=== PATIENT | female | born 1950 | race Caucasian/White ===

== ENCOUNTER 2019-07-15 16:20 | Emergency (ER) | payer MEDICARE, BC, SELFPAY ==
--- NOTE | 2019-07-15 16:28 | ED.GENADULT ---
HPI - General Adult General Chief complaint: Extremity Injury, Lower Stated complaint: lt foot toe pain Time Seen by Provider: 07/15/19 17:04 Source: patient Mode of arrival: ambulatory Limitations: no limitations History of Present Illness HPI narrative: 6-year-old female patient presents to the [facility] with complaints of left second toe pain. Patient states is been painful for about 3 days. Denies any injury to the toe that she can remember. Patient states it has been a little sore around the nail so she tried lifting up the edges of the nail put some Neosporin around there thinking it might be an ingrown toenail. Patient states now the distal portion of the toe is very red swollen and tender. Patient denies being a diabetic. Denies any fevers or chills that she is aware of. Related Data Home Medications Medication Instructions Recorded Confirmed cholecalciferol (vitamin D3) 4,000 unit PO DAILY 07/15/19 07/15/19 [Vitamin D3] estradiol 2 mg PO DAILY 07/15/19 07/15/19 losartan 07/15/19 Allergies Allergy/AdvReac Type Severity Reaction Status Date / Time iodine Allergy Severe SWELLING Unverified 07/15/19 16:37 Review of Systems Review of Systems: Narrative: CONSTITUTIONAL: Denies fever, chills, or sweats. EYES: Denies visual changes, redness, or discharge. ENT: Denies rhinorrhea, congestion, sore throat, or otalgia. CARDIOVASCULAR: Denies chest pain, palpitations, or edema. RESPIRATORY: Denies cough or dyspnea. GASTROINTESTINAL: Denies abdominal pain, nausea, vomiting, or diarrhea. GENITOURINARY: Denies dysuria or hematuria. SKIN: Denies rash or itching. MUSCULOSKELETAL: Denies back pain, joint pain, or myalgia. Positive left second toe pain x3-day NEUROLOGIC: Denies headache, numbness, or weakness. PSYCHIATRIC: Denies anxiety or depression. PMFSH Comments At the time of my signature I agree with nursing past medical history, surgical, social, and family history. There is no relevant family history pertinent to the presenting complaint. Exam Narrative: Exam Narrative: GENERAL: Well-appearing, well-nourished, and in no acute distress. HEAD: Normocephalic, atraumatic. EYES: PERRLA and EOMI. ENT: Nares clear, no rhinorrhea or epistaxis. Mucous membranes moist. NECK: Supple. No lymphadenopathy CHEST: Clear to auscultation. No respiratory distress. HEART: Regular rate and rhythm. No murmur heard. Normal peripheral pulses. ABDOMEN: Soft, nontender, nondistended, normal active bowel sounds. EXTREMITIES: Normal range of motion. No edema. Patient has some redness and tenderness with slight swelling noted to the distal portion of the left second toe. There is no obvious drainable abscess no notable drainage around the nail bed at this time. SKIN: Warm, dry, no rash. NEURO: No focal deficits. Alert and oriented x3. Course Vital Signs Vital signs: Vital Signs Temperature 36.8 C 07/15/19 16:41 Pulse Rate 71 07/15/19 16:41 Respiratory Rate 16 07/15/19 16:41 Blood Pressure 137/75 07/15/19 16:41 Pulse Oximetry 99 07/15/19 16:41 Temperature 36.8 C 07/15/19 16:41 Pulse Rate 71 07/15/19 16:41 Respiratory Rate 16 07/15/19 16:41 Blood Pressure 137/75 07/15/19 16:41 Pulse Oximetry 99 07/15/19 16:41 Vital signs reviewed. Medical Decision Making Differential Diagnosis Differential Diagnosis: Differential diagnosis: Foot fracture, crush injury, compartment syndrome, contusion, sprain, tendinitis,lisfranc sprain or fracture, avulsion fracture, grown toenail, diabetic ulcer. Discussed with patient that this could be an ingrown toenail that is starting to get infected causing some cellulitis to the area. Discussed with her we will go ahead and place her on some oral antibiotics and I want her to soak the foot and some Epson salt baths about 15 minutes 3 times a day to help dry out the infection and may continue putting the Neosporin around the nail bed. Patient verbalizes understanding
[2019-07-15 16:41] VITALS: BP 137/75; PULSE 71; RESP 16; TEMP 36.8; O2SAT 99
== END 2019-07-15 17:11 | disposition home or self-care (01) ==
PROVIDERS: Emergency Provider Nurse Practitioner Family
DX: L03.032 Cellulitis of left toe (principal); I10 Essential (primary) hypertension
CPT/HCPCS: 99213; G0463

== ENCOUNTER → 2020-03-29 13:21 | Outpatient (CLI) | payer MEDICARE, BC, SELFPAY ==
--- NOTE | ~2020-03-29 | MM_ITS ---
EXAMINATION: MM screening nichole BI w ina HISTORY: Screening mammogram TECHNIQUE: Craniocaudal and mediolateral oblique 3-D tomosynthesis images were obtained and synthetic 2-D images were generated. CAD analysis was submitted and interpreted. COMPARISON: 09/28/2018, 02/21/2016, 02/03/2015 bilateral digital screening mammogram examinations BREAST PARENCHYMAL COMPOSITION: The breasts are almost entirely fatty. FINDINGS: There is no evidence of suspicious mass, calcification, or architectural distortion to sugg est malignancy in either breast. There has been no suspicious interval change. IMPRESSION: 1. No mammographic evidence of malignancy. 2. Recommend routine screening mammography in one year. BI-RADS Category 1: Negative Reviewed, dictated and finalized at [facility].
== END ==
PROVIDERS: PCP Family Medicine Sports Medicine; Visit Provider Family Medicine Sports Medicine
DX: Z12.31 Encounter for screening mammogram for malignant neoplasm of breast (principal)
CPT/HCPCS: 77063; 77067

== ENCOUNTER 2020-07-24 08:18 | Outpatient (CLI) | payer MEDICARE, BC, SELFPAY ==
--- NOTE | ~2020-07-24 | CT_ITS ---
EXAMINATION: CT abdomen pelvis wo con DATE: 07/24/2020 08:48 INDICATION: Abdominal pain TECHNIQUE: Computed tomography (CT) of the abdomen and pelvis was performed without intravenous contr ast. Automated exposure control and iterative reconstruction technique were employed. Exam dose: 281 .78 mGy-cm total exam DLP. COMPARISON: 06/29/2008 CT abdomen FINDINGS: There is mild discoid atelectasis or scarring of the middle lobe and lingula and left lower lobe. No pulmonary consolidation is noted at the included lower lung zones. Normal heart size. No pericardial or pleural effusion. Small sliding hiatal hernia. The liver, gallbladder, bile ducts, pancreas, pancreatic duct are unremarkable. Splenic size is withi n normal limits. There is nonspecific diminished attenuation of the anterolateral aspect of the splee n. Normal morphology of the adrenal glands. Approximately 4 mm nonobstructing upper pole left renal calculus. There are two 2 mm or smaller nonob structing lower pole left renal calculi. No ureteral calculus or hydroureteronephrosis is noted on either side. No apparent renal space-occupy ing mass lesion is noted on this limited noncontrast examination. Normal caliber of the abdominal aorta. No intraperitoneal or retroperitoneal or pelvic mass lesion or adenopathy or ascites is evident. There is considerable streak artifact from a right hip prosthesis, limiting evaluation of the pelvic area. There are numerous diverticula of the sigmoid colon; no CT evidence of diverticulitis. There is a pro minent amount of fecal material within the colon. No bowel obstruction, bowel wall thickening, pneuma tosis or intraperitoneal free air is evident. The appendix is not definitively identified. There is no evidence of inflammatory change in the peric ecal area. The urinary bladder appears unremarkable. The uterus is apparently surgically absent. Normal caliber of the abdominal aorta. Status post right hip arthroplasty. Transitional lumbosacral vertebra (S1). Prominent degenerative changes apophyseal joints and the lumb ar and lumbosacral area with associated grade 1 anterolisthesis at L5-S1. IMPRESSION: Nonobstructive left nephrolithiasis Small sliding hiatal hernia Diverticulosis of the sigmoid colon; no CT evidence of diverticulitis Reviewed, dictated and finalized at [facility]. Reviewed, dictated and finalized at [facility]. GER GOLF
== END 2020-07-24 08:19 | disposition home or self-care (01) ==
LOC: ANHIMG 08:19
PROVIDERS: PCP Family Medicine Sports Medicine; Visit Provider Internal Medicine Gastroenterology
DX: R10.9 Unspecified abdominal pain (principal); N20.0 Calculus of kidney; K44.9 Diaphragmatic hernia without obstruction or gangrene; K57.30 Diverticulosis of large intestine without perforation or abscess without bleeding
CPT/HCPCS: 74176

== ENCOUNTER → 2020-08-26 02:10 | Outpatient (CLI) | payer MEDICARE, BC, SELFPAY ==
[2020-08-26 20:23] LABS: SARS-CoV-2 RNA PCR Negative
== END ==
PROVIDERS: PCP Family Medicine Sports Medicine; Visit Provider Internal Medicine Gastroenterology
DX: Z20.822 Contact with and (suspected) exposure to COVID-19 (principal)
CPT/HCPCS: C9803; U0003; U0005

== ENCOUNTER 2020-08-30 01:13 | Day surgery (SDC) | payer MEDICARE, BC, SELFPAY ==
[2020-08-16 11:45] VITALS: BMI 24.5
[2020-08-30 07:43] VITALS: BP 127/57; PULSE 66; RESP 20; TEMP 36.4; O2SAT 100
[2020-08-30] MEDS: LACTATED RINGERS 1,000 ML 150 ML IV CONT (07:51)
--- NOTE | 2020-08-30 08:31 | P.PNAN_ITS ---
Anes - Initial Pre Proc Eval Procedure: Operation Date: 08/30/20 08:45 Proposed Procedures p Esophagogastroduodenoscopy & Colonoscopy - Dakota Shankar MD Date/Time: 08/30/20 08:31 Surgeon: Dakota Shankar MD Pre Op Diagnosis: Change In bowel, N&V, Abdominal Pain Patient Data Age: 70 Gender: F Height: 5 ft Weight: 57.5 kg Last Vital Signs Temp 97.5 F L 08/30/20 07:43 Pulse 66 08/30/20 07:43 Resp 20 08/30/20 07:43 BP 127/57 L 08/30/20 07:43 Pulse Ox 100 08/30/20 07:43 Allergies Allergy/AdvReac Type Severity Reaction Status Date / Time iodine Allergy Severe SWELLING Verified 08/30/20 07:41 lisinopril Allergy Mild Cough Verified 08/30/20 07:41 Home Medications Medication Instructions Recorded Confirmed Type cholecalciferol (vitamin D3) 4,000 unit PO DAILY 07/15/19 08/16/20 History [Vitamin D3] losartan 50 mg PO DAILY 07/15/19 08/16/20 History Patient hx anesthesia problems: none Family hx anesthesia problems: none [facility] Past Medical History Medical History (Updated 07/19/20 @ 15:14 by ANTHONY Becerra) Abdominal pain Arthritis COVID-19 GERD (gastroesophageal reflux disease) HDL deficiency Hemorrhoids Hypertension Osteoarthritis Osteopathia Seasonal allergies Surgical History Surgical History H/O: hysterectomy History of colonoscopy History of right hip replacement Social History Social History (Updated 07/19/20 @ 13:34 by Ale Giron CMA) Smoking packs per day: 1 Smoking cigarettes per day: 20.0 Years smoked: 12 Smoking pack-years: 12.00 Smoking status: Former smoker Tobacco type: cigarettes Alcohol intake: never Substance use: never Substance use type: does not use Living arrangements: with family Gender identity (if verbalized by the patient): Female Spiritual care concerns: No Anes - Eval Final PreProcedure Day of Procedure 08/30/20 08:31 Patient weight: normal Heart: regular rate and rhythm Lungs: clear to auscultation Airway: Mallampati scale class II Neurological: alert and oriented Last oral intake: >/= 8 hours ASA classification: II Emergent: no Anesthetic plan: proceed Anesthesia type and monitoring: general GIVS and standard monitoring Informed Consent: The patient's anesthetic plan and its attendant risks and benefits were discussed with the patient/family/POA. Questions were solicited and answers provided to the satisfaction of the patient/family/POA.
[2020-08-30] MEDS: BENZOCAINE (*SP) 60 ML SPRAY CAN (HURRICAINE) 1 SPRAY MUCOUS MEM (08:45)
--- NOTE | 2020-08-30 09:13 | PM.HPGS ---
History of Present Illness History of Present Illness Consent: Risks, benefits, and alternatives have been discussed and questions answered. Patient agrees to proceed with procedure. Chief complaint: Change In bowel, N&V, Abdominal Pain Narrative: Lisa Shin is a 70 year old female with nausea, vomiting earlier this year but improved, also abdominal pain. Last colonoscopy 2005 Review of Systems Constitutional: Constitutional: Denies headache(s) and Denies weakness Eyes: Eyes: Denies blurry vision ENT: Reports Normal hearing present, Denies headache(s) and Denies neck pain Cardiovascular: Cardiovascular: Denies chest pain and Denies dyspnea Respiratory: Respiratory: Denies dyspnea Gastrointestinal: Gastrointestinal: Reports no additional gastrointestinal complaints Genitourinary: Genitourinary: Denies dysuria Musculoskeletal: Musculoskeletal: Denies neck pain Integumentary/Breasts: Skin/Breast: Denies dry skin Neurologic: Reports Normal hearing present, Denies headache(s) and Denies weakness Psychiatric: Psychiatric: Denies anxiety Endocrine: Endocrine: Denies change in body appearance Hematologic/Lymphatic: Hematologic/Lymphatic: Denies easy bleeding Allergic/Immunologic: Allergic/Immunologic: Denies urticaria PMFSH Past Medical History Medical History (Updated 08/30/20 @ 09:14 by Dakota Shankar MD) Abdominal pain Arthritis Colon cancer screening COVID-19 GERD (gastroesophageal reflux disease) HDL deficiency Hemorrhoids Hypertension Osteoarthritis Osteopathia Seasonal allergies Surgical History Surgical History H/O: hysterectomy History of colonoscopy History of right hip replacement Social History Social History (Updated 07/19/20 @ 13:34 by Ale Giron CMA) Smoking packs per day: 1 Smoking cigarettes per day: 20.0 Years smoked: 12 Smoking pack-years: 12.00 Smoking status: Former smoker Tobacco type: cigarettes Alcohol intake: never Substance use: never Substance use type: does not use Living arrangements: with family Gender identity (if verbalized by the patient): Female Spiritual care concerns: No Meds Home Medications and Allergies Home Medications Medication Instructions Recorded Confirmed Type cholecalciferol (vitamin D3) 4,000 unit PO DAILY 07/15/19 08/16/20 History [Vitamin D3] losartan 50 mg PO DAILY 07/15/19 08/16/20 History Allergies Allergy/AdvReac Type Severity Reaction Status Date / Time iodine Allergy Severe SWELLING Verified 08/30/20 07:41 lisinopril Allergy Mild Cough Verified 08/30/20 07:41 Vital Signs Vital Signs - 24 hr 08/30/20 07:43 Temperature 97.5 F L Pulse Rate 66 Respiratory Rate 20 Blood Pressure 127/57 L Pulse Oximetry 100 Exam Const: General: comfortable and no acute distress HENMT: General nose exam: Normal nares present Eyes: General: appearance normal, both eyes and all related structures Neck: Neck: no JVD Resp: Auscultation: clear to auscultation bilaterally Cardio: Rate: regular rate Rhythm: regular rhythm GI: Inspection: non-distended GI Palp: Yes Soft to palpation Skin: General skin exam: normal color Neuro: General: gait normal Speech: normal speech Extrem: General: normal to inspection Psych: Mental Status: mental status grossly normal Assessment and Plan Assessment and plan (1) GERD (gastroesophageal reflux disease): Code(s): K21.9 - Gastro-esophageal reflux disease without esophagitis Status: Acute Assessment and Plan: egd (2) Abdominal pain: Code(s): R10.9 - Unspecified abdominal pain Status: Acute (3) Colon cancer screening: Code(s): Z12.11 - Encounter for screening for malignant neoplasm of colon Status: Acute Assessment and Plan: colonoscopy
[2020-08-30 09:15] VITALS: BP 92/54; PULSE 66; RESP 16; O2SAT 94
[2020-08-30 09:25] VITALS: BP 97/56; PULSE 58; RESP 18; O2SAT 95
[2020-08-30 09:35] VITALS: BP 110/68; PULSE 54; RESP 16; O2SAT 98
== END 2020-08-30 09:47 | disposition home or self-care (01) ==
PROVIDERS: PCP Family Medicine Sports Medicine; Visit Provider Internal Medicine Gastroenterology
PROC: 0DJ08ZZ Inspection of Upper Intestinal Tract, Via Natural or Artificial Opening Endoscopic (ICD-10-PCS; CPT 43235; principal; 2020-08-30 08:45)
DX: Z12.11 Encounter for screening for malignant neoplasm of colon (principal); K57.30 Diverticulosis of large intestine without perforation or abscess without bleeding; K64.8 Other hemorrhoids; K44.9 Diaphragmatic hernia without obstruction or gangrene; K22.2 Esophageal obstruction; K29.50 Unspecified chronic gastritis without bleeding; K29.80 Duodenitis without bleeding; I10 Essential (primary) hypertension; K21.9 Gastro-esophageal reflux disease without esophagitis; M19.90 Unspecified osteoarthritis, unspecified site; Z86.16 Personal history of COVID-19; Z87.891 Personal history of nicotine dependence
CPT/HCPCS: 43249; 43239; G0121; 87081; 88305; C1726; J2001; J2704; J7120

== ENCOUNTER 2020-10-09 00:02 | Inpatient (IN) | payer MEDICARE, BC, SELFPAY ==
[2020-10-09] VITALS (36 sets, daily range): BP systolic 96–141; BP diastolic 49–71; PULSE 57–88; RESP 15–26; TEMP 36.4–36.8; O2SAT 94–100; BMI 25.3
--- NOTE | ~2020-10-09 | CT_ITS ---
EXAMINATION: CT abdomen pelvis w con DATE: 10/09/2020 04:00 INDICATION: Pancreas abnormality presenting with upper abdominal pain and vomiting. TECHNIQUE: Computed tomography (CT) of the abdomen and pelvis was performed with 100 mL Omnipaque-350 intravenous contrast. Automated exposure control and iterative reconstruction technique were employe d. The dose-length product was 379.64 mGy-cm. COMPARISON: None FINDINGS: Interval increase in linear and mild groundglass opacities in the bilateral lower lungs most likely r elated to atelectasis although mild pulmonary edema not excludable. Heart size is normal. Small slidi ng-type hiatal hernia. There is portal venous thrombosis with cavernous transformation of the portal vein. Gallbladder is normal. There is some inflammatory stranding surrounding the head of the pancrea s with some edema extending caudally along the root of mesentery which could be related to acute inte rstitial pancreatitis or secondary to the portal venous thrombosis. Pancreas is otherwise unremarkabl e with no masses identified. Small splenic infarct with small region of decreased attenuation and cor responding volume loss. Bilateral adrenal glands are normal. There are small bilateral renal cysts me asuring up to 1 cm in maximal diameter. Again seen are a few nonobstructing left renal stones measuri ng up to 3 mm and a 1 mm nonobstructing stone at the lower pole of the right kidney. There is promine nt edematous wall thickening in the proximal colon consistent with colitis there are few scattered di verticula along the sigmoid colon without adjacent inflammatory change to suggest diverticulitis. No bowel obstruction. Bladder is normal. Minimal likely reactive free fluid in the pelvis. No abscess or free intraperitoneal gas. No pathologically enlarged abdominal or pelvic lymphadenopathy. Moderate t horacic spondylosis. Mild lumbar spondylosis with 3 mm anterolisthesis L4 on L5. IMPRESSION: 1. Colitis in the proximal colon which could be infectious, inflammatory or ischemic in etiology. 2. Portal venous thrombosis with cavernous transformation. 3. Inflammatory stranding around the head of the pancreas and at the root of mesentery which could be related to acute interstitial pancreatitis or to the portal venous thrombosis. Correlate with amylas e and lipase levels. 4. Small sliding-type hiatal hernia. 5. 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 6. Nonobstructing bilateral nephrolithiasis. Reviewed, dictated and finalized at [facility]. IMPRESSION: 1. Colitis in the proximal colon which could be infectious, inflammatory or isc hemic in etiology. 2. Portal venous thrombosis with cavernous transformation. 3. Inflammatory stranding around the head of the pancreas and at the root of me sentery which could be related to acute interstitial pancreatitis or to the por jourdan venous thrombosis. Correlate with amylase and lipase levels. 4. Small sliding-type hiatal hernia. 5. 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 6. Nonobstructing bilateral nephrolithiasis.
--- NOTE | ~2020-10-09 | CT_ITS ---
EXAMINATION: CT abdomen pelvis wo con DATE: 10/09/2020 02:10 INDICATION: Upper abdominal pain. Nausea. Vomiting. TECHNIQUE: Computed tomography (CT) of the abdomen and pelvis was performed without intravenous contr ast. Automated exposure control and iterative reconstruction technique were employed. Exam dose: 386 .31 mGy-cm total exam DLP. COMPARISON: 07/24/[address] abdomen pelvis FINDINGS: There is mild discoid atelectasis or scarring in the lower lung zones. Normal heart size. N o pericardial or pleural effusion. Moderate sliding hiatal hernia. No hepatic space-occupying mass lesion or bile duct dilatation. The gallbladder is distended. No bainca cholecystic fluid or fat stranding or gallbladder wall thickening is evident. There is fullness and hazy increased density in the region of the pancreatic head and periportal area ; consider acute pancreatitis versus pancreatic head mass. Postcontrast cross-sectional imaging would be helpful for better characterization of possible. No pancreatic calcification or ductal dilatation . Normal splenic size. Normal morphology of the adrenal glands. Pinpoint nonobstructing lower pole right renal calculus. Approximately 4.7 mm nonobstructing mid left renal calculus and 2 additional approximately 2.5 and 2 mm nonobstructing lower pole left renal calc mayuri. No apparent ureteral calculus or hydroureteronephrosis. Normal caliber of the abdominal aorta. No intraperitoneal or retroperitoneal or pelvic mass lesion or adenopathy or ascites. There are numerous diverticula of the sigmoid colon; no CT evidence of diverticulitis. There are nondilated fluid distended small bowel segments and fluid levels within the colon, suggesti ng enterocolitis. Prominent degenerative disc disease with eburnation and spurring at T8-9 and T9-10. Transitional first sacral vertebra. Degenerative change at the apophyseal joints with associated grade 1 anterolisthesis at L5-S1. Right total hip arthroplasty. IMPRESSION: Fluid containing nondilated small bowel and fluid levels in the colon, suggesting nonspe cific enterocolitis Fullness and hazy increased density around the pancreatic head and periportal area; consider repeat e xamination with IV contrast material. Clinical correlation for acute pancreatitis is recommended. Moderate sliding hiatal hernia Bilateral nonobstructive nephrolithiasis Diverticulosis of the sigmoid colon; no CT evidence of diverticulitis. Reviewed, dictated and finalized at [facility]. Reviewed, dictated and finalized at [facility]. IMPRESSION: Fluid containing nondilated small bowel and fluid levels in the co will, suggesting nonspecific enterocolitis Fullness and hazy increased density around the pancreatic head and periportal a wilian; consider repeat examination with IV contrast material. Clinical correlatio n for acute pancreatitis is recommended. Moderate sliding hiatal hernia Bilateral nonobstructive nephrolithiasis Diverticulosis of the sigmoid colon; no CT evidence of diverticulitis.
--- NOTE | 2020-10-09 00:42 | ECG_ITS ---
Measurements Intervals [place] Rate: 64 P: 9 IN: 183 QRS: -25 QRSD: 99 T: 31 QT: 418 QTc: 433 Interpretive Statements SINUS RHYTHM BORDERLINE AV CONDUCTION DELAY DELAYED PRECORDIAL R/S TRANSITION BASELINE ARTIFACT- I, II, AVR, AVL, AVF BORDERLINE ECG Electronically Signed On 10-09-2020 7:05:16 CDT by Iam Parker D.O.
--- NOTE | 2020-10-09 00:42 | ED.NAVMDI ---
HPI - Nausea/Vomiting/Diarrhea General Chief complaint: Nausea/Vomiting/Diarrhea Stated complaint: abd pain with vomiting Time Seen by Provider: 10/09/20 00:10 Source: patient Mode of arrival: ambulatory Limitations: no limitations History of Present Illness HPI Narrative: This is a 70 year old female with history of hypertension and gastritis who presents for evaluation of nausea, vomiting and abdominal pain. She developed epigastric abdominal pain 3 hours ago, and she developed nonbilious emesis. Her pain is radiating to her back. She denies diarrhea, fever or chills. She states she had something similar several months ago. In July 2020, Dr. Shankar performed an upper endoscopy with esophageal dilatation and colonoscopy. She states she was found to have inflammation of her stomach . She has been taking omeprazole 20 mg. She has been doing fine until tonight. Related Data Home Medications Medication Instructions Recorded Confirmed cholecalciferol (vitamin D3) 5,000 unit PO DAILY 07/15/19 08/16/20 [Vitamin D3] losartan 50 mg PO DAILY 07/15/19 08/16/20 Allergies Allergy/AdvReac Type Severity Reaction Status Date / Time iodine Allergy Severe SWELLING Verified 10/09/20 00:21 lisinopril Allergy Mild Cough Verified 10/09/20 00:21 Review of Systems Review of Systems: All systems reviewed & are unremarkable except as noted in HPI and below Constitutional: Constitutional: Denies chills and Denies fever(s) Cardiovascular: Cardiovascular: Denies chest pain Respiratory: Respiratory: Denies cough and Denies dyspnea Gastrointestinal: Gastrointestinal: Reports abdominal pain, Denies diarrhea, Reports nausea and Reports vomiting Musculoskeletal: Musculoskeletal: Reports back pain PMFSH Past Medical History Medical History Abdominal pain Arthritis Colon cancer screening COVID-19 GERD (gastroesophageal reflux disease) HDL deficiency Hemorrhoids Hypertension Osteoarthritis Osteopathia Seasonal allergies Surgical History Surgical History H/O: hysterectomy History of colonoscopy History of right hip replacement Social History Social History (Updated 07/19/20 @ 13:34 by Ale Giron [facility]) Smoking packs per day: 1 Smoking cigarettes per day: 20.0 Years smoked: 11 Smoking pack-years: 11.00 Smoking status: Former smoker Tobacco type: cigarettes Second hand tobacco smoke exposure: No Alcohol intake: current Drinks per week: 0 Substance use: never Substance use type: does not use Gender identity (if verbalized by the patient): Female Sexual Orientation (if Verbalized by the Patient): Straight or Heterosexual Spiritual care concerns: No Exam Const: General: alert and ill appearing Orientation/consciousness: patient oriented x3 Other: actively vomiting Eyes: EOM: EOMs intact bilaterally Resp: Effort & Inspection: normal respiratory effort and no retractions Auscultation: clear to auscultation bilaterally Cardio: Rate: regular rate Rhythm: regular rhythm Heart sounds: no murmurs GI: GI Palp: Yes Soft to palpation, Yes Tenderness to palpation present (GI) (epigastric, LUQ), No Guarding due to palpation present (GI) and No Rigid due to palpation Auscultation: Hypoactive bowel sounds present Back/Spine/Pelvis: Back: no CVA tenderness Skin: General skin exam: normal color Rashes: no rashes Neuro: General: patient oriented x3, moves all extremities and CN's II-XI intact bilaterally Course Reevaluation(s) Reevaluation #1: PAtient states she feels better. I Discussed with patient plan to admit. Date: 10/09/20 Time: 05:00 Consultations Consultation #1: I Discussed case with DR. Regan and he accepts patient to hospitalist service. Date: 10/09/20 Time: 05:00 Vital Signs Vital signs: Vital Signs Temperature 98.2 F
[2020-10-09] MEDS: ONDANSETRON INJ 4 MG/2 ML VIAL IV PUSH ×3 (01:05→04:02)
[2020-10-09 01:07] LABS: Add Urine Microscopic? YES; Appearance Urine Cloudy (Clear); Bacteria Urine Trace /hpf; Bilirubin Urine Negative (Negative); Blood Urine 1+ (Negative); Calcium Oxalate Crystals Urine Many /hpf; Color Urine Yellow (Yellow); Glucose Urine UA Negative (Negative); Ketones Urine Negative (Negative); Leukocyte Esterase Ur Trace LEU/UL (Negative); Mucus Urine Few /lpf; Nitrate Urine Negative (Negative); Protein Urine 1+ mg/dL (Negative); Specific Grav Ur 1.024 (1.001-1.035); Squamous Epithelial Cell Urine Rare /hpf (Few)
[2020-10-09] MEDS: SODIUM CHLORIDE 0.9% IV 1,000 ML 999 ML IV CONT ×2 (01:07→02:13)
[2020-10-09] MEDS: PANTOPRAZOLE SODIUM IV 40 MG VIAL IV PUSH ×2 (01:08→09:19)
[2020-10-09 01:18] LABS: Basophils Absolute Auto 0.1 K/mm3 (0.0-0.1); Basophils Percent Auto 0.5 % (0.2-1.2); Eosinophils Absolute Auto 0.1 K/mm3 (0-0.3); Eosinophils Percent Auto 0.2 % (0-4.4); Hematocrit 44.8 % (37.0-47.0); Hemoglobin 14.4 g/dL (12.0-15.0); Immature Granulocyte Percent A 0.9 % (0-0.5); Immature Platelet Fraction Pct 5.5 % (0.9-11.2); Lymphocytes Absolute Auto 1.96 K/mm3 (0.9-3.2); Lymphocytes Percent Auto 8.4 % (18.3-44.2); Mean Corpuscular HGB Conc 32.1 g/dl (32-36); Mean Corpuscular Hemoglobin 30.9 pg (26-34); Mean Corpuscular Volume 96.1 fl (80-100); Mean Platelet Volume 9.9 fl (7.4-10.4); Monocytes Absolute Auto 1.8 K/mm3 (0.1-0.6); Monocytes Percent Auto 7.8 % (2.6-8.5); Neutrophils Absolute Auto 19.1 K/mm3 (1.3-6.7); Neutrophils Percent Auto 82.2 % (45.5-73.1); Platelet Count Result 442 k/mm3 (150-375); Red Blood Count 4.66 M/mm3 (4.2-5.4); Red Cell Distribution Width 16.1 % (11.5-14.5); White Blood Count 23.3 K/mm3 (4.5-10.0)
[2020-10-09 01:48] LABS: Alanine Aminotransferase 25 U/L (4-35); Albumin Level 5.1 g/dL (3.5-5.1); Alkaline Phosphatase 82 U/L (38-126); Anion Gap 14 mmol/L (8-16); Aspartate Amino Transferase 43 U/L (14-36); Bilirubin,Total 0.4 mg/dL (0.2-1.3); Blood Urea Nitrogen 23 mg/dL (7-17); Calcium 9.9 mg/dL (8.4-10.2); Carbon Dioxide 23 mmol/L (22-30); Chloride 103 mmol/L (98-107); Estimated CRCL calculation 36 ml/min; Estimated Glomerular Filt Rate > 60; Glucose 141 mg/dL (65-105); Lipase 94 U/L (23-300); Potassium 4.1 mmol/L (3.4-5.0); Sodium 140 mmol/L (137-145)
[2020-10-09] MEDS: MORPHINE SULFATE (*CRX) 4 MG/ML INJ IV PUSH (02:33)
[2020-10-09] MEDS: diphenhydrAMINE HCl INJ 50 MG/ML VIAL 25 MG IV PUSH (03:46)
--- NOTE | 2020-10-09 06:26 | ADMGEN ---
This patient, Lisa Shin, was admitted to [facility] Surg Room 329-01 at 0600 from ED Dept. Patient/family oriented to hospital policies and general routines including ID bracelet, bed and alarms, visiting hours, pain management, procedures, bathroom and other care routines, personal items, smoking policy, room service/diet, and visiting hours. Information on how to activate the Rapid Response Team has been discussed. Patient/Family are encouraged to report perceived risks to care and to ask questions if they do not understand what they are told or what they should do.
[2020-10-09] MEDS: SODIUM CHLORIDE 0.9% IV 1,000 ML 125 ML IV CONT (09:22)
--- NOTE | 2020-10-09 10:20 | PM.IMHP ---
H&P: HPI History of Present Illness Date/Time: 10/09/20 10:20 Chief Complaint: Abdominal cramping Narrative: Date of admission: 10/09/2020 Date of service: 10/09/2020 Lisa Shin is a 70-year-old female with a history of esophageal ring s/p esophageal dilation, recent treatment for gastritis and duodenitis in July 2020, GERD, and hypertension presented to the emergency department on 10/09/2020 with complaints of abdominal cramping, nausea, and vomiting. Last night around 10:00 p.m., she developed sudden onset of diffuse abdominal cramping which she rated as 8/10. Pain radiated to her back. She subsequently developed nausea and had approximately 8 episodes of emesis with small bits of date is food. While in the ED, she had 1 episode brown, foamy diarrhea. She denied blood in stool or emesis. She cannot recall eating anything out of the ordinary yesterday, noting that she had a turkey sandwich for lunch and a taco for dinner. She recently underwent EGD and colonoscopy 08/30/2020 due to similar symptoms of abdominal cramping, nausea, and vomiting which revealed and duodenitis. She was started on omeprazole with symptomatic improvement until this time. Upon presentation to the ED, her vital signs were stable and she was afebrile, her white count was elevated at 23.3, H&H stable with elevated platelet count of 442, electrolytes stable, AST slightly elevated at 43, UA without concern for infection, though many calcium oxalate crystals noted, CT abdomen/pelvis showed a fluid containing nondilated small bowel and fluid levels in the colon suggesting nonspecific enterocolitis. At the time of my evaluation, her abdominal pain has resolved. She is no longer experiencing nausea or vomiting and last episode of diarrhea was last night in the ED. She is being admitted to the hospitalist service for observation. Supervising physician for this history and physical is Dr. Linh Drummond. Review of Systems Review of Systems: Narrative: All systems reviewed with pertinent positives and negatives as per HPI. Additionally, patient denies any urinary symptoms. She denies suprapubic pain or flank pain. No hematuria. She denies dizziness, lightheadedness, fever, or chills. She has had a low-grade headache the past 2-3 days but this has improved. Denies body aches or joint pains. She endorses GERD symptoms, but notes this is also improved. She denies dysphagia. Denies weight loss. No leg pain or swelling. [facility] Past Medical History Medical History (Updated 10/09/20 @ 13:03 by Magda Carranza PA-C) Arthritis Colon cancer screening COVID-19 GERD (gastroesophageal reflux disease) HDL deficiency Hemorrhoids Hypertension Osteoarthritis Seasonal allergies Surgical History Surgical History (Updated 10/09/20 @ 10:40 by Magda Carranza PA-C) H/O: hysterectomy History of appendectomy History of colonoscopy History of right hip replacement Family History Family History (Updated 10/09/20 @ 10:41 by Magda Carranza PA-C) Mother Cerebrovascular accident Father Heart disease Social History Social History (Updated 10/09/20 @ 10:43 by Magda Carranza PA-C) Social History: Ms. Shin lives at home alone and is independent in her activities. She has 2 adult daughters. 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 Her PCP is Dr. Zach Carroll. She designates her oldest daughter, Holley, as her surrogate decision maker and she would like to be a full code. Smoking packs per day: 1 Smoking cigarettes per day: 20.0 Years smoked: 10 Smoking pack-years: 10.00 Smoking status: Former smoker Tobacco type: cigarettes Second hand tobacco smoke exposure: No Drinks per week: 0 Alcohol use details: Social alcohol use 2-3x/year Substance use: never Substance use type: does not use Gender identity (if verbalized by the patient): Female Sexual Orientation (if Verbalized by the Patient): Straight or Heterosexual S
[2020-10-09] MEDS: SODIUM CHLORIDE 0.9% IV 1,000 ML 75 ML IV CONT ×2 (13:53→21:42)
--- NOTE | 2020-10-09 14:51 | WPDGICN ---
Assessment and Plan Assessment and plan (1) Portal vein thrombosis: Code(s): I81 - Portal vein thrombosis Status: Acute Assessment and Plan: new diagnosis. She does not have liver disease and recent EGD did not show any changes consistent of portal hypertension I wonder if she may have thrombotic risk factor and probably will need work up for prothrombotic states, will consult hematology. 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 Then I performed on 08/30/20 EGD that showed mild gastritis with mild duodenitis, small hiatal hernia and esophageal ring dilated with TTS balloon up to 20mm, colonoscopy with normal mucosa only diverticulosis. I started on omeprazole and she says that has been doing quite well and mostly asymptomatic until day of admission when she had intractable N/V up to 8 times, also diffuse abdominal cramping that was severe, radiated to her back and one episode of diarrhea. CT scan was done and reviewed, showed colitis in the proximal colon which could be infectious, inflammatory or ischemic in etiology. Portal venous thrombosis with cavernous transformation. Inflammatory stranding around the head of the pancreas and at the root of mesentery which could be related to acute interstitial pancreatitis or to the portal venous thrombosis. Small sliding-type hiatal hernia. 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 Today she is feeling better with no more nausea or diarrhea, less pain. Review of Systems Constitutional: Constitutional: Denies weakness Eyes: Eyes: Reports no additional eye complaints ENT: Reports Normal hearing present Cardiovascular: Cardiovascular: Denies chest pain Respiratory: Respiratory: Denies dyspnea Gastrointestinal: Gastrointestinal: Reports abdominal pain, Reports nausea and Reports vomiting Genitourinary: Genitourinary: Denies hematuria Musculoskeletal: Musculoskeletal: Denies neck pain Integumentary/Breasts: Skin/Breast: Denies dry skin Neurologic: Denies headache(s) Psychiatric: Psychiatric: Reports no additional psychiatric complaints PMF Past Medical History Medical History (Updated 10/09/20 @ 15:00 by Dakota Shankar MD) Arthritis Colon cancer screening COVID-19 Epigastric pain Gastritis GERD (gastroesophageal reflux disease) HDL deficiency Hemorrhoids Hypertension Osteoarthritis Seasonal allergies Surgical History Surgical History (Updated 10/09/20 @ 10:40 by Magda Carranza PA-C) H/O: hysterectomy History of appendectomy History of colonoscopy History of right hip replacement Family History Family History (Updated 10/09/20 @ 10:41 by Magda Carranza PA-C) Mother Cerebrovas
[2020-10-10 06:00] VITALS: BP 103/53; PULSE 55; RESP 20; TEMP 36.4; O2SAT 100
[2020-10-10 06:22] LABS: Basophils Percent Auto 0.4 % (0.2-1.2); Eosinophils Absolute Auto 0.1 K/mm3 (0-0.3); Eosinophils Percent Auto 1.3 % (0-4.4); Hematocrit 32.8 % (37.0-47.0); Immature Granulocyte Absolute 0.07 K/mm3 (0.00-0.031); Immature Granulocyte Percent A 0.9 % (0-0.5); Lymphocytes Absolute Auto 1.74 K/mm3 (0.9-3.2); Lymphocytes Percent Auto 21.9 % (18.3-44.2); Mean Corpuscular HGB Conc 32.3 g/dl (32-36); Mean Corpuscular Hemoglobin 30.8 pg (26-34); Mean Corpuscular Volume 95.3 fl (80-100); Mean Platelet Volume 9.2 fl (7.4-10.4); Monocytes Absolute Auto 0.8 K/mm3 (0.1-0.6); Monocytes Percent Auto 10.1 % (2.6-8.5); Neutrophils Absolute Auto 5.2 K/mm3 (1.3-6.7); Neutrophils Percent Auto 65.4 % (45.5-73.1); Platelet Count Result 248 k/mm3 (150-375); Red Blood Count 3.44 M/mm3 (4.2-5.4); Red Cell Distribution Width 15.9 % (11.5-14.5)
[2020-10-10 06:35] LABS: Alanine Aminotransferase 16 U/L (4-35); Albumin Level 3.2 g/dL (3.5-5.1); Alkaline Phosphatase 51 U/L (38-126); Anion Gap 4 mmol/L (8-16); Aspartate Amino Transferase 21 U/L (14-36); Bilirubin,Total 0.6 mg/dL (0.2-1.3); Blood Urea Nitrogen 15 mg/dL (7-17); Calcium 8.5 mg/dL (8.4-10.2); Carbon Dioxide 23 mmol/L (22-30); Chloride 112 mmol/L (98-107); Estimated CRCL calculation 36 ml/min; Estimated Glomerular Filt Rate > 60; Glucose 96 mg/dL (65-105); Lipase 39 U/L (23-300); Potassium 3.9 mmol/L (3.4-5.0); Sodium 139 mmol/L (137-145)
[2020-10-10 07:28] LABS: Hemoglobin 10.6 g/dL (12.0-15.0)
[2020-10-10] MEDS: ENOXAPARIN 40 MG/0.4 ML SYRINGE SUB-Q (08:25)
[2020-10-10] MEDS: PANTOPRAZOLE 40 MG TABLET PO (08:26)
[2020-10-10 10:08] VITALS: BP 112/54
[2020-10-10] MEDS: SODIUM CHLORIDE 0.9% IV 1,000 ML 75 ML IV CONT (11:44)
--- NOTE | 2020-10-10 13:30 | PDONCCN ---
HPI - Date of Consult Date/Time: 10/10/20 13:30 Requesting Physician: Magda Carranza PA-C Primary Care Provider: Zach CarrollMD - Consult Narrative Reason for consult: Portal vein thrombosis. Narrative: Lisa Shin is a 70 year old female who has been in good health except history of gastroesophageal reflux disease and also had history of gastritis and had esophageal dilatation done in July of 2020. At that time patient had EGD done that showed duodenitis and gastritis. She came into the ER with complain of mid epigastric discomfort along with nausea vomiting. She had similar episode back in June of 2020. She had EGD and colonoscopy done on August 30, 2020 for similar symptoms of abdominal cramping nausea and vomiting and reviewed duodenitis and gastritis. She denies any fevers and chills. CT scan showed nonspecific enterocolitis and portal vein thrombosis with cavernous malformation along with inflammatory stranding around the head of the pancreas and the root of the mesentery related to interstitial pancreatitis or to the portal vein thrombosis along with small subacute to chronic splenic infarction. She denies any history of liver disease. She denies any history of thromboembolic events and blood clot in the past. Her mother was taking blood thinner for unclear reason according to patient. She is feeling better now with improvement in abdominal pain. Review of Systems - Review of Systems All systems reviewed & are unremarkable except as noted in HPI and bel - Neurologic Reports hearing normal, Denies headache(s), Denies weakness PMFSH Medical History: Medical History (Last Updated 10/09/20 @ 15:00 by Dakota Shankar MD) Arthritis Colon cancer screening COVID-19 Epigastric pain Gastritis GERD (gastroesophageal reflux disease) HDL deficiency Hemorrhoids Hypertension Osteoarthritis Seasonal allergies Surgical History: Surgical History (Last Updated 10/09/20 @ 10:40 by Magda Carranza PA-C) H/O: hysterectomy History of appendectomy History of colonoscopy History of right hip replacement Family History: Family History (Last Updated 10/09/20 @ 10:41 by Magda Carranza PA-C) Mother Cerebrovascular accident Father Heart disease - Social History Social History: Social History (Last Updated 10/09/20 @ 10:43 by Magda Carranza PA-C) Gender Identity: Gender identity (if verbalized by the patient): Female Sexual Orientation: Sexual Orientation (if Verbalized by the Patient): Straight or Heterosexual Alcohol Use: Drinks per week: 0 Alcohol use details: Social alcohol use 2-3x/year Substance Use: Substance use: never Substance use type: does not use Others: Spiritual care concerns: No Smoking Status: Smoking status: Former smoker Tobacco type: cigarettes Second hand tobacco smoke exposure: No Approximate Smoking End Date: 1991 Smoking Pack-years: Smoking packs per day: 1 Smoking cigarettes per day: 20.0 Years smoked: 10 Smoking pack-years: 10.00 Meds Home Medications Medication Instructions Recorded Confirmed Type cholecalciferol (vitamin D3) 5,000 unit PO DAILY 07/15/19 08/16/20 History [Vitamin D3] losartan 50 mg PO DAILY 07/15/19 08/16/20 History omeprazole magnesium 20 mg 20 mg PO DAILY #30 tablet 08/30/20 Rx tablet,delayed release Allergies Allergy/AdvReac Type Severity Reaction Status Date / Time iodine Allergy Severe SWELLING Verified 10/09/20 00:21 lisinopril Allergy Mild Cough Verified 10/09/20 00:21 Results - Labs CBC & Chem 7: 10/10/20 06:10 10/10/20 06:10 Labs: Short CBC 10/10/20 Range/Units 06:10 WBC 8.0 (4.5-10.0) K/mm3 Hgb 10.6 L D (12.0-15.0) g/dL Hct 32.8 L (37.0-47.0) % Plt Count 248 (150-375) k/mm3 BMP 10/10/20 06:10 Sodium 139 Potassium 3.9 Chloride 112 H Carbon Dioxide
[2020-10-10 13:55] VITALS: BP 118/56; PULSE 73; RESP 18; TEMP 36.7; O2SAT 98
--- NOTE | 2020-10-10 14:25 | WPDGIPROGNO ---
Progress Note: A&P Assessment and Plan (1) Portal vein thrombosis: Code(s): I81 - Portal vein thrombosis Status: Acute Assessment and Plan: started on blood thinners by hematology CT scan will be repeated in 3 months as outpatient and hypercoagulable workup will be performed after completion of anticoagulation therapy no history of liver disease (EGD recently) (2) Epigastric pain: Code(s): R10.13 - Epigastric pain Status: Acute (3) GERD (gastroesophageal reflux disease): Code(s): K21.9 - Gastro-esophageal reflux disease without esophagitis Status: Acute Assessment and Plan: gerd symptoms better with ppi daily (4) Colitis: Code(s): K52.9 - Noninfective gastroenteritis and colitis, unspecified Status: Acute Assessment and Plan: no diarrhea, on antibiotics probably can discontinue soon recent colonoscopy no colitis (5) Leukocytosis: Code(s): D72.829 - Elevated white blood cell count, unspecified Status: Acute Assessment and Plan: resolved Subjective Date/time seen: 10/10/20 14:25 Interval history: she is feeling much better today, tolerating liquid diet with pain improved, she has not had BM since admission. Review of Systems Review of Systems: All systems reviewed & are unremarkable except as noted in HPI and below Exam Const: General: comfortable and no acute distress HENMT: General nose exam: Normal nares present Eyes: General: appearance normal, both eyes and all related structures Neck: Neck: no JVD Resp: Auscultation: clear to auscultation bilaterally and no rhonchi Cardio: Rate: regular rate Rhythm: regular rhythm GI: Inspection: non-distended GI Palp: Yes Soft to palpation, Yes Tenderness to palpation present (GI) (only minimal pain in epigastric, no rebound) and No Guarding due to palpation present (GI) Auscultation: normal bowel sounds Skin: General skin exam: normal color Neuro: Speech: normal speech Motor exam (neuro): Normal motor muscle tone present throughout Extrem: General: normal to inspection Psych: Mental Status: mental status grossly normal Objective Data Vital Signs Vital Signs: Vital Signs - 24 hr 10/09/20 22:00 10/10/20 06:00 10/10/20 10:08 Temperature 97.8 F 97.5 F L Pulse Rate 57 L 55 L Respiratory Rate 18 20 Blood Pressure 106/51 L 103/53 L 112/54 L Pulse Oximetry 98 100 10/10/20 13:55 Temperature 98.0 F Pulse Rate 73 Respiratory Rate 18 Blood Pressure 118/56 L Pulse Oximetry 98 Intake/Output Intake/Output: Intake & Output 10/07/20 10/08/20 10/09/20 10/10/20 23:59 23:59 23:59 23:59 Intake Total 3886 2300 Output Total 400 1300 Balance 3486 1000 Meds/Results Medications: Active Medications Generic Name Dose Route Start Last Admin Trade Name Freq PRN Reason Stop Dose Admin Acetaminophen 650 mg 10/09/20 10:40 Acetaminophen 325 Mg Tablet PO Q4H PRN Pain 1-3 Apixaban 10 mg 10/10/20 21:00 Apixaban 5 Mg Tablet PO 10/17/20 21:01 Q12HR MANUEL Piperacillin Sod/Tazobactam Sod 2.25 gm in 50 mls @ 100 mls/hr 10/09/20 12:00 10/10/20 11:44 Zosyn 2.25 Gm/D5w 50 Ml IVPB 100 mls/hr Q6H MANUEL Administration Sodium Chloride 1,000 mls @ 75 mls/hr 10/09/20 05:05 10/10/20 11:44 Normal Saline Iv IV CONT 75 mls/hr .[id number] MANUEL Administration Losartan Potassium 50 mg 10/10/20 09:00 10/10/20 08:26 Losartan Potassium 50 Mg Tablet PO 50 mg DAILY MANUEL Administration Ondansetron HCl 4 mg 10/09/20 05:03 Ondansetron Inj 4 Mg/2 Ml Vial IV PUSH Q4H PRN Nausea Pantoprazole Sodium 40 mg 10/10/20 09:00 10/10/20 08:26 Pantoprazole 40 Mg Tablet PO 40 mg QAM MANUEL Administration Radiology Results: ITS Impressions Abdomen/Pelvis CT 10/09/20 07:23 IMPRESSION: 1. Colitis in the proximal colon which could be infectious, inflammatory or ischemic in etiology. 2. Portal venous thrombosis wi
--- NOTE | 2020-10-10 14:28 | PM.IMPN ---
Progress Note: A&P Assessment and Plan (1) Colitis: Code(s): K52.9 - Noninfective gastroenteritis and colitis, unspecified Status: Acute Assessment and Plan: Presented with abdominal pain, nausea, and vomiting. CT abdomen/pelvis suggestive of nonspecific colitis. Infectious etiology seems most likely. Pain has resolved Continue IV Zosyn Gastroenterology has been consulted and input is appreciated. Advance to bland, low-fiber diet Discontinue IV fluids. She is tolerating PO intake. (2) Portal vein thrombosis: Code(s): I81 - Portal vein thrombosis Status: Acute Assessment and Plan: Evident on CT abdomen/pelvis. Denies any history of clotting/thromboembolism. Appreciate hematology consultation Eliquis initiated. Continue 10 mg BID x7 days. Then 5 mg BID x3-6 months. She will need outpatient follow-up with Dr. Abreu with repeat imaging in approximately 3 months and lab workup for hypercoagulability as outpatient following completion of anticoagulation treatment. 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 She denies any personal or family history of clotting. Start Eliquis. Plan as above. Appreciate hematology consultation. (4) Leukocytosis: Code(s): D72.829 - Elevated white blood cell count, unspecified Status: Acute Assessment and Plan: Resolved. White count elevated at 23.3 at presentation, likely secondary to infectious colitis. Improved today at 8.0. (5) GERD (gastroesophageal reflux disease): Code(s): K21.9 - Gastro-esophageal reflux disease without esophagitis Status: Acute Assessment and Plan: Asymptomatic at this time Continue p.o. pantoprazole (6) Hypertension: Code(s): I10 - Essential (primary) hypertension Status: Acute Assessment and Plan: Blood pressure reviewed and is well controlled on the lower end Continue home losartan Monitor blood pressure trends closely Subjective Date/time seen: 10/10/20 14:28 Interval history: Date of service: 10/10/2020 Lisa Shin is a 70-year-old female with a history of esophageal ring s/p esophageal dilation, recent treatment for gastritis and duodenitis in July 2020, GERD, and hypertension is seen in 5 follow-up for colitis, portal vein thrombosis, and splenic infarction. She is feeling much better today. She only notes mild, intermittent discomfort in her left upper quadrant. She denies any additional abdominal cramping. No bloating. No further episodes of nausea or vomiting. No diarrhea. She denies dizziness, lightheadedness, fever, or chills. She has been tolerating full liquids without difficulty and is eager to advance her diet. She has been ambulating without difficulty. She denies any urinary symptoms. Denies shortness breath, cough, chest pain. Review of Systems Review of Systems: All systems reviewed & are unremarkable except as noted in HPI and below Exam Narrative: Exam Narrative: Ms. Shin is a well-nourished, well-appearing 70-year-old female who is lying supine in bed. She appears comfortable and is in NARD. Neuro: awake, alert and oriented x4, speech clear, no focal neuro deficits noted HEENMT: normocephalic, atraumatic, EOMI, sclerae anicteric, moist oral mucosa, tongue midline, nares patent Neck: supple, no lymphadenopathy Respiratory: clear to auscultation bilaterally, nonlabored breathing Cardio: regular rate, regular rhythm with S1-S2 Abdomen: nondistended, normoactive bowel sounds, soft, nontender to palpation, no rigidity or guarding Extremities: no edema, erythema, cyanosis, clubbing, or tenderness to palpation, DP pulses 2+ bilaterally Skin: no rashes or lesions, warm and dry Psych: appropriate mood and affect, judgment and
[2020-10-10] MEDS: APIXABAN 5 MG TABLET 10 MG PO (20:17)
[2020-10-10 21:47] VITALS: BP 110/58; PULSE 58; RESP 18; TEMP 37.5; O2SAT 96
[2020-10-10 21:50] VITALS: O2SAT 96
[2020-10-11 05:37] VITALS: BP 126/58; PULSE 54; RESP 18; TEMP 37.2; O2SAT 95
[2020-10-11 06:18] LABS: Hemoglobin 10.8 g/dL (12.0-15.0); Mean Corpuscular HGB Conc 32.7 g/dl (32-36); Mean Corpuscular Hemoglobin 30.6 pg (26-34); Mean Corpuscular Volume 93.5 fl (80-100); Mean Platelet Volume 9.5 fl (7.4-10.4); Platelet Count Result 279 k/mm3 (150-375); Red Blood Count 3.53 M/mm3 (4.2-5.4); Red Cell Distribution Width 15.6 % (11.5-14.5); White Blood Count 7.8 K/mm3 (4.5-10.0)
[2020-10-11 06:30] LABS: Anion Gap 3 mmol/L (8-16); Blood Urea Nitrogen 11 mg/dL (7-17); Calcium 8.6 mg/dL (8.4-10.2); Carbon Dioxide 27 mmol/L (22-30); Chloride 109 mmol/L (98-107); Estimated CRCL calculation 36 ml/min; Estimated Glomerular Filt Rate > 60; Glucose 105 mg/dL (65-105); Potassium 3.7 mmol/L (3.4-5.0); Sodium 139 mmol/L (137-145)
[2020-10-11] MEDS: PANTOPRAZOLE 40 MG TABLET PO (09:35)
[2020-10-11] MEDS: LOSARTAN POTASSIUM 50 MG TABLET PO (09:35)
[2020-10-11] MEDS: APIXABAN 5 MG TABLET 10 MG PO (09:35)
[2020-10-11 11:13] VITALS: O2SAT 97
--- NOTE | 2020-10-11 11:18 | PCNFU ---
Nutrition Follow-Up Complete: Inadequate oral intake as related to Nausea/Vomiting as evidenced by 12 ibs weight loss in 4 months. Goal: Meet estimated nutritional needs Patient is progressing towards goal. We will continue current goal. Pt current nutrition is Low fiber. Last recorded weight is 58.9 kg,no new weight to report. Bowel Motility:NO BM reported. Labs Reviewed:Hct 33.0, Hgb 10.8 Meds Noted:Eliquis,Cozaar,Miralax,Protonix, Zosyn Additional Notes: Nutrition follow up. Patient seen today. PO intake has improved: 75-90% of most meals. Breakfast today: cream of wheat and coffee. Educated on a low fiber diet today. Info given with my card for any further questions or concerns. Patient instruction also attached. Monitoring: Will monitor every 7 days.
--- NOTE | 2020-10-11 11:22 | PM.DS ---
DS: Admitting Diagnosis Admitting Diagnosis Admitting Diagnosis: Colitis DS: Discharge Diagnosis Discharge Diagnosis (1) Colitis: Code(s): K52.9 - Noninfective gastroenteritis and colitis, unspecified Status: Acute Assessment and Plan: Presented with abdominal pain, nausea, and vomiting. CT abdomen/pelvis suggestive of nonspecific colitis. Infectious etiology most likely. She was seen in consultation by Gastroenterology and was treated with IV Zosyn. She was rehydrated with IV fluids. Abdominal pain resolved. She had no diarrhea. Diet was slowly advanced and she was able to tolerate a bland diet. She has follow-up appointment scheduled with Dr. Hutchins (GI) in approximately 3 weeks. (2) Portal vein thrombosis: Code(s): I81 - Portal vein thrombosis Status: Acute Assessment and Plan: New finding evident on CT abdomen/pelvis. Denies any history of clotting/thromboembolism. She has seen in consultation by Hematology and Eliquis was initiated. Continue 10 mg BID x7 days then 5 mg BID x3-6 months. Discussed risks versus benefits of anticoagulation at length. She verbalized understanding and agreed. She will need outpatient follow-up with Dr. Abreu with repeat imaging in approximately 3 months and lab workup for hypercoagulability as outpatient following completion of anticoagulation treatment. 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 She denies any personal or family history of clotting. Started on Eliquis as above. Outpatient hematology follow-up for further evaluation. (4) Leukocytosis: Code(s): D72.829 - Elevated white blood cell count, unspecified Status: Acute Assessment and Plan: Resolved. White count elevated at 23.3 at presentation, likely secondary to infectious colitis and also portal vein thrombosis. WBC normalized. (5) GERD (gastroesophageal reflux disease): Code(s): K21.9 - Gastro-esophageal reflux disease without esophagitis Status: Acute Assessment and Plan: Asymptomatic. Continue omeprazole (6) Hypertension: Code(s): I10 - Essential (primary) hypertension Status: Acute Assessment and Plan: Blood pressure reviewed and was well controlled on her home losartan. (7) Normocytic anemia: Code(s): D64.9 - Anemia, unspecified Status: Acute Assessment and Plan: H&H with slight decline following admission. She had no active bleeding and vital signs remained stable. Suspect this may be dilutional effect. H&H stable at discharge. Instructed to seek care should she notice any signs/symptoms of bleeding, especially with initiation of oral anticoagulant. DS: Summary Hospital Course Reason for hospitalization: Abdominal pain, nausea, vomiting Hospital Course: Date of admission: 10/09/2020 Date of discharge: 10/11/2020 Lisa Shin is a 70-year-old female with a history of esophageal ring s/p esophageal dilation, recent treatment for gastritis and duodenitis in July 2020, GERD, and hypertension presented to the emergency department on 10/09/2020 with complaints of abdominal cramping, nausea, and vomiting. Upon presentation to the ED, her vital signs were stable and she was afebrile, her white count was elevated at 23.3, H&H stable with elevated platelet count of 442, electrolytes stable, AST slightly elevated at 43, UA without concern for infection, though many calcium oxalate crystals noted, CT abdomen/pelvis showed nonspecific colitis, portal vein thrombosis with cavernous transformation, small subacute to chronic splenic infarct, nonobstructing bilateral nephrolithiasis, and inflammatory stranding around the head of the pancreas likely related to portal venous thrombosis given normal lipase levels. She was admitted to
== END 2020-10-11 13:05 | disposition home or self-care (01) | DRG 391 ==
LOC: ANHED 05:10 → ANH3MEDSUR 05:31
PROVIDERS: Physician Assistant; Admitting Provider Internal Medicine; Emergency Provider General Practice; PCP Family Medicine Sports Medicine; Visit Provider Internal Medicine
DX: A09 Infectious gastroenteritis and colitis, unspecified (principal); I81 Portal vein thrombosis; E86.0 Dehydration; D73.5 Infarction of spleen; K29.70 Gastritis, unspecified, without bleeding; K44.9 Diaphragmatic hernia without obstruction or gangrene; D72.829 Elevated white blood cell count, unspecified; K21.9 Gastro-esophageal reflux disease without esophagitis; I10 Essential (primary) hypertension; D64.9 Anemia, unspecified; M19.90 Unspecified osteoarthritis, unspecified site; Z96.641 Presence of right artificial hip joint; Z90.710 Acquired absence of both cervix and uterus; Z87.891 Personal history of nicotine dependence; Z86.16 Personal history of COVID-19; Z90.49 Acquired absence of other specified parts of digestive tract
CPT/HCPCS: 36415; 74176; 74177; 80048; 80053; 81001; 83605; 83690; 85025; 85027; 85055; 93005; 96361; 96365; 96372; 96375; 96376; 99285; A9270; C9113; G0378; J1200; J1650; J2270; J2405; J2543; J7030; Q9967

== ENCOUNTER 2021-01-10 07:12 | Outpatient (CLI) | payer MEDICARE, BC, SELFPAY ==
--- NOTE | ~2021-01-10 | CT_ITS ---
EXAMINATION: CT abdomen pelvis w con INDICATION: Portal vein thrombosis TECHNIQUE: Computed tomographic images of the abdomen and pelvis were obtained after the administrati on of 100 cc of Omnipaque 350 intravenous contrast. The dose-length product (DLP) was 251.12 mGy-cm. Automated exposure control and iterative reconstruction technique were employed. COMPARISON: 10/09/2020 FINDINGS: Minimal dependent atelectasis is present in the lung bases. The heart size is normal. Altho ugh timing of the contrast bolus is slightly different, there is persistent thrombosis of the portal vein with cavernous transformation and multiple venous collaterals. There is a stable 9 mm hyperenhan cing lesion of the right hepatic lobe, likely focal nodular hyperplasia. The pancreas, and adrenal gl ands are normal. A chronic splenic infarct is again noted. The gallbladder is contracted. Nonobstruct ing stones of the left kidney measure up to 3 mm. The right kidney is unremarkable. No pathologically enlarged abdominal or pelvic lymph nodes are identified. There is no free intraperitoneal gas or kitty dence of bowel obstruction. Colonic diverticulosis is present without evidence of diverticulitis. Ledy nges of right total hip arthroplasty are noted. There is mild lumbar spondylosis. IMPRESSION: 1. Persistent portal vein thrombosis with cavernous transformation. No acute findings. Reviewed, dictated and finalized at location B. IMPRESSION: 1. Persistent portal vein thrombosis with cavernous transformation. No acute fi ndings.
== END 2021-01-10 07:13 | disposition home or self-care (01) ==
PROVIDERS: PCP Family Medicine Sports Medicine; Visit Provider Internal Medicine Hematology & Oncology
DX: I81 Portal vein thrombosis (principal); M47.816 Spondylosis without myelopathy or radiculopathy, lumbar region; D73.5 Infarction of spleen; K57.30 Diverticulosis of large intestine without perforation or abscess without bleeding
CPT/HCPCS: 74177; Q9967

== ENCOUNTER 2021-01-15 14:04 | Emergency (ER) | payer MEDICARE, BC, SELFPAY ==
[2021-01-15 14:13] VITALS: BP 154/62; PULSE 71; RESP 16; TEMP 36.8; O2SAT 98
--- NOTE | 2021-01-15 14:25 | ED.GENADULT ---
HPI - General Adult General Chief complaint: Upper Respiratory Infection Stated complaint: sinus issues Source: patient Mode of arrival: ambulatory Limitations: no limitations History of Present Illness HPI narrative: Patient is a 70-year-old female presents the urgent care via POV for evaluation of a sinus problem that has been present for approximately 1 to 1-1/2 weeks. Additionally, she reports right frontal headache, right sinus pressure and pain, runny nose, and dizziness. She states dizziness is intermittent. Denies taking OTC meds for symptoms. Madelyn pot improves symptoms. Bending forward worsens symptoms. History of sinusitis. Today symptoms are identical to previous episodes. Related Data Home Medications Medication Instructions Recorded Confirmed Vitamin D3 5,000 unit PO DAILY 07/15/19 01/15/21 losartan 50 mg PO DAILY 07/15/19 01/15/21 omeprazole 20 mg PO DAILY 01/15/21 01/15/21 Allergies Allergy/AdvReac Type Severity Reaction Status Date / Time iodine Allergy Severe SWELLING Verified 01/15/21 14:18 lisinopril Allergy Mild Cough Verified 01/15/21 14:18 Review of Systems Review of Systems: Denies history of COPD, bronchitis, asthma, and pneumonia. Denies current/past tobacco use. Denies fever, sweats, chills, change in appetite, severe persistent headaches, fatigue, skin color changes, nasal congestion, LOC, near syncope, lymphadenopathy, ear pain/drainage, chest pain, heart murmurs, heart palpitations, shortness of breath, wheezing, cyanosis, hemoptysis, hoarseness, orthopnea, pleuritic pain, nausea, vomiting, diarrhea, and myalgias. [facility] Past Medical History Medical History Arthritis Colon cancer screening COVID-19 Epigastric pain Gastritis GERD (gastroesophageal reflux disease) HDL deficiency Hemorrhoids Hypertension Osteoarthritis Seasonal allergies Surgical History Surgical History H/O: hysterectomy History of appendectomy History of colonoscopy History of right hip replacement Family History Family History Mother Cerebrovascular accident Father Heart disease Social History Social History Social History: Ms. Shin lives at home alone and is independent in her activities. She has 2 adult daughters. 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 Her PCP is Dr. Zach Carroll. She designates her oldest daughter, Holley, as her surrogate decision maker and she would like to be a full code. Smoking packs per day: 1 Smoking cigarettes per day: 20.0 Years smoked: 10 Smoking pack-years: 10.00 Smoking status: Former smoker Tobacco type: cigarettes Second hand tobacco smoke exposure: No Drinks per week: 0 Alcohol use details: Social alcohol use 2-3x/year Substance use: never Substance use type: does not use Gender identity (if verbalized by the patient): Female Spiritual care concerns: No Comments I have reviewed and agree with the patient's past medical, surgical, social, and family hx as documented by the RN. There is no relevant family history pertinent to the presenting complaint. Exam Narrative: GENERAL: Well-appearing, well-nourished, and in no acute distress. HEAD: Normocephalic, atraumatic. Moderate right frontal and maxillary sinus tenderness. No facial swelling appreciated. EYES: PERRLA and EOMI. No evidence of erythema, swelling, or drainage. ENT: Bilateral external ears and ear canals normal. Right TM with mild clear effusion. Left TM normal. Nares clear, no rhinorrhea or epistaxis. Bilateral turbinates without erythema/ swelling. Mucous membranes moist and pink. Uvula is midline without erythema and swelling. No evidence of petechial rash, cobblestoning, lesions, ulcers, erythema, swelling, exudates, peritonsill
== END 2021-01-15 14:48 | disposition home or self-care (01) ==
PROVIDERS: Emergency Provider Nurse Practitioner Family; PCP Family Medicine Sports Medicine
DX: J01.90 Acute sinusitis, unspecified (principal); Z87.891 Personal history of nicotine dependence; M19.90 Unspecified osteoarthritis, unspecified site; Z86.16 Personal history of COVID-19; K21.9 Gastro-esophageal reflux disease without esophagitis; I10 Essential (primary) hypertension; Z96.641 Presence of right artificial hip joint
CPT/HCPCS: 99213; G0463

== ENCOUNTER 2023-01-27 15:58 | Outpatient (CLI) | payer MEDICARE, BC, SELFPAY ==
[2023-01-27 16:15] LABS: Hematocrit 56.1 % (37.0-47.0); Hemoglobin 18.3 g/dL (12.0-15.0); Mean Corpuscular HGB Conc 32.6 g/dl (32-36); Mean Corpuscular Hemoglobin 30.5 pg (26-34); Mean Corpuscular Volume 93.5 fl (80-100); Mean Platelet Volume 9.1 fl (7.4-10.4); Platelet Count Result 934 k/mm3 (150-375); Red Cell Distribution Width 14.2 % (11.5-14.5); White Blood Count 10.4 K/mm3 (4.5-10.0)
[2023-01-27 16:49] LABS: Alanine Aminotransferase 20 U/L (6-35); Albumin Level 4.9 g/dL (3.5-5.1); Alkaline Phosphatase 84 U/L (38-126); Anion Gap 15 mmol/L (8-16); Aspartate Amino Transferase 40 U/L (14-36); Bilirubin,Total 0.6 mg/dL (0.2-1.3); Blood Urea Nitrogen 22 mg/dL (7-17); Calcium 9.5 mg/dL (8.4-10.2); Carbon Dioxide 30 mmol/L (22-30); Chloride 92 mmol/L (98-107); Estimated Glomerular Filt Rate > 60; Glucose 90 mg/dL (65-110); Sodium 137 mmol/L (137-145)
[2023-01-29 14:57] LABS: Erythropoietin (EPO) 1.4 mIU/mL (2.6-18.5)
[2023-01-30 20:31] LABS: Homocysteine 9.2 umol/L (<10.4)
== END 2023-01-27 15:59 | disposition home or self-care (01) ==
LOC: ANHLAB 16:01
PROVIDERS: PCP Family Medicine Sports Medicine; Visit Provider Internal Medicine Hematology & Oncology
DX: D45 Polycythemia vera (principal); D68.69 Other thrombophilia
CPT/HCPCS: 36415; 80053; 82668; 83090; 85027

== ENCOUNTER → 2023-01-30 13:30 | Outpatient (CLI) | payer MEDICARE, BC, SELFPAY ==
--- NOTE | ~2023-01-30 | MM_ITS ---
EXAMINATION: MM screening nichole BI w nia HISTORY: Screening mammogram TECHNIQUE: Craniocaudal and mediolateral oblique 3-D tomosynthesis images were obtained and synthetic 2-D images were generated. CAD analysis was submitted and interpreted. COMPARISON: 03/29/2020, 09/28/2018 BREAST PARENCHYMAL COMPOSITION:There are scattered areas of fibroglandular density. FINDINGS: No suspicious mass, calcification, or architectural distortion are identified in either nhan ast to suggest malignancy. There has been no suspicious interval change. IMPRESSION: No mammographic evidence of malignancy. Recommend routine screening mammography in one year. BI-RADS Category 1: Negative Reviewed, dictated and finalized at location .
== END ==
PROVIDERS: PCP Family Medicine Sports Medicine; Visit Provider Family Medicine Sports Medicine
DX: Z12.31 Encounter for screening mammogram for malignant neoplasm of breast (principal)
CPT/HCPCS: 77063; 77067

== ENCOUNTER 2023-02-03 14:35 | Emergency (ER) | payer MEDICARE, BC, SELFPAY ==
[2023-02-03 14:51] VITALS: BP 152/65; PULSE 61; RESP 16; TEMP 36.8; O2SAT 99
--- NOTE | 2023-02-03 14:51 | ED.SKABFB ---
HPI - Skin/Abscess/Foreign Bdy General Chief complaint: Skin/Abscess/Foreign Body Stated complaint: RASH Time Seen by Provider: 02/03/23 14:56 Source: patient Mode of arrival: ambulatory Limitations: no limitations History of Present Illness HPI narrative: 72-year-old female presenting for complaint of burning, itching, red rash under the left breast. Onset 4 days. Denies drainage to the site. Has been applying antibiotic ointment. Status impressions the systems prescribed ketoconazole nystatin, which she still has but it is . Related Data Home Medications Medication Instructions Recorded Confirmed cholecalciferol (vitamin D3) 100 5,000 unit PO DAILY 07/15/19 02/03/23 mcg (4,000 unit) capsule (Vitamin D3) losartan 50 mg tablet 50 mg PO DAILY 07/15/19 02/03/23 Bacillus coagulans 250 million 1 cell PO DAILY 05/03/21 02/03/23 cell chewable tablet (Digestive Advantage Probiotic Gummy) aspirin 81 mg chewable tablet 81 mg PO DAILY 05/03/21 02/03/23 (Severiano Chewable Low Dose Aspirin) folic acid 400 mcg tablet 0.4 mg PO DAILY 05/03/21 02/03/23 allopurinol 300 mg tablet 300 mg PO DAILY 02/03/23 02/03/23 hydroxyurea 500 mg capsule 500 mg PO BID 02/03/23 02/03/23 vitamin B complex (B tablet 02/03/23 Complex-Vitamin B12 tablet) Allergies Allergy/AdvReac Type Severity Reaction Status Date / Time iodine Allergy Severe SWELLING Verified 02/03/23 14:47 lisinopril Allergy Mild Cough Verified 02/03/23 14:47 Review of Systems Review of Systems: CONSTITUTIONAL: Denies body aches, fever, chills, or sweats. EYES: Denies visual changes, redness, or discharge. ENT: Denies rhinorrhea, congestion CARDIOVASCULAR: Denies chest pain, palpitations, or edema. RESPIRATORY: Denies cough or dyspnea. GASTROINTESTINAL: Denies abdominal pain, nausea, vomiting, or diarrhea. SKIN: Reports rash MUSCULOSKELETAL: Denies back pain, joint pain, or myalgia. NEUROLOGIC: Denies headache, numbness, tingling, or weakness. [facility] Past Medical History Medical History Arthritis Colon cancer screening COVID-19 Epigastric pain Gastritis GERD (gastroesophageal reflux disease) HDL deficiency Hemorrhoids Hypertension Osteoarthritis Seasonal allergies Surgical History Surgical History H/O: hysterectomy History of appendectomy History of colonoscopy History of right hip replacement Family History Family History Mother Cerebrovascular accident Father Heart disease Social History Social History Social History: Ms. Shin lives at home alone and is independent in her activities. She has 2 adult daughters. 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 Her PCP is Dr. Zach Carroll. She designates her oldest daughter, Holley, as her surrogate decision maker and she would like to be a full code. Smoking packs per day: 1 Smoking cigarettes per day: 20.0 Years smoked: 10 Smoking pack-years: 10.00 Tobacco type: cigarettes Second hand tobacco smoke exposure: No Drinks per week: 0 Alcohol use details: Social alcohol use 2-3x/year Substance use: never Substance use type: does not use Living arrangements: with family Occupation/Education: retired Gender identity (if verbalized by the patient): Female Sexual Orientation (if Verbalized by the Patient): Straight or Heterosexual Spiritual care concerns: No Comments At time of signature, I have reviewed and agree with nursing past medical, surgical, social and family history unless otherwise noted. Please see nursing chart for further information. There is no relevant family history pertinent to the presenting complaint Exam Narrative: GENERAL: Well-appearing HEAD: Normocephalic, atraumatic. EYES: conjunctivae clear, and EOMI. ENT: Mucou
== END 2023-02-03 15:09 | disposition home or self-care (01) ==
PROVIDERS: Emergency Provider Nurse Practitioner Family; PCP Family Medicine Sports Medicine
DX: B37.2 Candidiasis of skin and nail (principal); F17.210 Nicotine dependence, cigarettes, uncomplicated; M19.90 Unspecified osteoarthritis, unspecified site; K21.9 Gastro-esophageal reflux disease without esophagitis; I10 Essential (primary) hypertension; Z96.641 Presence of right artificial hip joint; Z79.82 Long term (current) use of aspirin
CPT/HCPCS: 99213; G0463

== ENCOUNTER 2025-01-22 09:53 | Outpatient (CLI) | payer MEDICARE, BC, SELFPAY ==
--- NOTE | 2025-01-22 | ECG_ITS ---
Test Date: 2025-01-22 10:40:44 Measurements Intervals [place] Rate: 57 P: 45 [place]: 204 QRS: -32 QRSD: 98 T: 30 QT: 429 QTc: 421 Interpretive Statements SINUS BRADYCARDIA LEFT AXIS DEVIATION BORDERLINE AV CONDUCTION DELAY INCOMPLETE RIGHT BUNDLE BRANCH BLOCK DELAYED PRECORDIAL R/S TRANSITION BASELINE ARTIFACT- I, II, AVR, V4-V5 BORDERLINE ECG No previous ECG available for comparison Electronically Signed On 01-22-2025 11:44:01 CDT by Iam Parker D.O.
[2025-01-22 10:27] LABS: Hematocrit 40.3 % (37.0-47.0); Hemoglobin 13.2 g/dL (12.0-15.0); Mean Corpuscular HGB Conc 32.8 g/dl (32-36); Mean Corpuscular Hemoglobin 37.1 pg (26-34); Mean Corpuscular Volume 113.2 fl (80-100); Platelet Count Result 320 k/mm3 (150-375); Red Blood Count 3.56 M/mm3 (4.2-5.4); White Blood Count 6.1 K/mm3 (4.5-10.0)
[2025-01-22 10:44] LABS: Alanine Aminotransferase 15 U/L (6-35); Albumin Level 4.4 g/dL (3.5-5.1); Alkaline Phosphatase 71 U/L (38-126); Anion Gap 9 mmol/L (4-12); Aspartate Amino Transferase 26 U/L (14-36); Bilirubin,Total 0.5 mg/dL (0.2-1.3); Blood Urea Nitrogen 18 mg/dL (7-17); Calcium 9.6 mg/dL (8.4-10.2); Carbon Dioxide 26 mmol/L (22-30); Chloride 105 mmol/L (98-107); Estimated Glomerular Filt Rate 57; Glucose 103 mg/dL (65-110); Potassium 4.5 mmol/L (3.4-5.0); Sodium 140 mmol/L (137-145); Total Protein 7.2 g/dL (6.3-8.2)
== END 2025-01-22 09:54 | disposition home or self-care (01) ==
PROVIDERS: PCP Family Medicine; Visit Provider Orthopaedic Surgery
DX: Z01.818 Encounter for other preprocedural examination (principal); S83.241A Other tear of medial meniscus, current injury, right knee, initial encounter; R94.31 Abnormal electrocardiogram [ECG] [EKG]
CPT/HCPCS: 36415; 80053; 85027; 93005